=== PATIENT | female | born 1965 | race Hispanic/Latino ===

== ENCOUNTER 2017-10-03 13:26 | Emergency (ER) | payer OTHER, MEDICARE | END 2017-10-03 15:00 | disposition home or self-care (01) | LOC: EDH 13:26 | DX: S92.592A Other fracture of left lesser toe(s), initial encounter for closed fracture (principal); F32.9 Major depressive disorder, single episode, unspecified; Z72.0 Tobacco use; X58.XXXA Exposure to other specified factors, initial encounter; Y93.89 Activity, other specified; Y92.89 Other specified places as the place of occurrence of the external cause; Y99.8 Other external cause status | CPT/HCPCS: 73630 ==

== ENCOUNTER 2018-03-18 18:52 | Emergency (ER) | payer OTHER, MEDICARE ==
[2018-03-18] MEDS ORDERED: ACETAMINOPHEN EXTRA STRENGTH 500 MG TABLET ONE (19:13)
== END 2018-03-18 19:27 | disposition home or self-care (01) ==
LOC: EDH 18:52
DX: G89.29 Other chronic pain (principal); M54.9 Dorsalgia, unspecified; F14.90 Cocaine use, unspecified, uncomplicated; F32.9 Major depressive disorder, single episode, unspecified; Z87.891 Personal history of nicotine dependence